=== PATIENT | female | born 1975 | race Caucasian/White ===

== ENCOUNTER 2021-04-25 13:24 | Emergency (ER) | payer OTHER, SELFPAY ==
[2021-04-25 13:29] VITALS: BP 155/97; PULSE 96; RESP 16; TEMP 36.8; O2SAT 98
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
[2021-04-25] MEDS: Ibuprofen 600 MG TAB PO (14:17)
--- NOTE | 2021-04-25 14:19 | NUR.NOTE ---
Nursing Note: Pt [id number] as ordered, c/o bilateral ear pain /, states has hx of same. Covid & UA obtained & sent to lab.
[2021-04-25 14:25] LABS: Bilirubin Negative (Negative); Blood Trace-intact (Negative); Clarity Clear (Clear); Glucose Negative (Negative); Ketones Negative (Negative); Leukocyte Esterase Negative (Negative); Nitrite Negative (Negative); Specific Gravity >= 1.030 (1.005-1.025); Urobilinogen 0.2 EU/dL (Up TO 0.2); pH 6.5 (5-8)
--- NOTE | 2021-04-25 14:30 | NUR.NOTE ---
Nursing Note: Referral given to Care Management for ear pain, headache, establish care with PCP within 1 to 2 weeks. COVID swab done. Patricia Davis
[2021-04-25 14:31] LABS: Bacteria Few HPF (Negative); C & S Indicated? No/Sq. Contamination; Casts Negative LPF (Negative); Crystals Negative HPF (Negative); Epithelial Cells Moderate HPF (Negative); Mucus Trace (Negative); RBC 0-2 HPF (0-2); WBC Negative HPF (0-5)
[2021-04-25 15:10] VITALS: BP 149/96; PULSE 90; RESP 16; TEMP 36.6; O2SAT 96
[2021-04-26 02:10] LABS: COVID-19 RT-PCR UVMMC Result Negative (Negative)
--- NOTE | 2021-04-26 11:02 | NUR.NOTE ---
pt informed via phone that covid result is negative.Nursing Note:
== END 2021-04-25 15:10 | disposition home or self-care (01) ==
PROVIDERS: Emergency Provider Physician Assistant
DX: H92.03 Otalgia, bilateral (principal); B35.1 Tinea unguium; R11.0 Nausea; Z20.822 Contact with and (suspected) exposure to COVID-19
CPT/HCPCS: 99283; U0003; U0005; 81003; 81015

== ENCOUNTER 2021-05-02 21:10 | Emergency (ER) | payer OTHER, SELFPAY ==
--- NOTE | 2021-05-02 21:12 | ED.GENADUL_ITS ---
Discharge Plan Disposition Patient Disposition: HOME Condition: Stable Discharge Details Clinical Impression: Otitis media of right ear Primary Care Provider: None,None ED Provider: Swapna Fuller Home Meds and New Rx's Prescriptions: New fluticasone propionate [Flonase Allergy Relief] 50 mcg/actuation spray,suspension 1 spray SHEILA DAILY Qty: 15.8 RF: 0 amoxicillin-pot clavulanate [Augmentin] 875-125 mg tablet 1 tab PO BID 10 Days Qty: 20 RF: 0 Continued ondansetron 4 mg tablet,disintegrating 4 mg PO TID PRN (Reason: nausea and vomiting) Qty: 6 RF: 0 Discharge Instructions Instructions: Ear Infection (ED) Additional Instructions: Drink plenty of fluids and get plenty of rest. Stop taking your amoxicillin prescription. A prescription for augmentin and nasal spray has been sent electronically to your pharmacy. Follow-up with a primary care doctor in 1 week. Return to the emergency department with any worsening or new concerning symptoms. Discharge Data Discharge Physician: Swapna Fuller Medical Decision Making 45-year-old female seen here last week for bilateral ear pain and nausea, given a prescription for amoxicillin for possible developing ear infection presents with persistent right ear pain which she is concerned will worsen when she finishes her antibiotics. Temp 100 today. Temp 97.9 here. Patient appears comfortable and nontoxic. I evaluated patient last week and her TMs appear normal bilaterally. Her right TM does now appear dull and minimally erythematous. She is finished her amoxicillin prescription tomorrow. Will stop this and start Augmentin. She was given a dose here, a bottle of Advil and a prescription sent electronically to your pharmacy. I discussed with patient that her symptoms may recover more quickly with a regimen of steroids but she is declining due to side effects. She would like a prescription for nasal steroid and was given a prescription for flonase. Her Covid test last week was negative. She denies any other new symptoms other than her right ear pain. Do not see indication for repeating a Covid test and patient agreeable. She is placed on care management list to establish care with a PCP last week. Advised to follow-up with her PCP for reevaluation. Usual and customary return precautions given prior to discharge. Medical Records Medical records reviewed: Yes I reviewed the patient's medical records. HPI General Mode of arrival: ambulatory . Date/Time Provider Initiated Documentation: 05/02/21 21:11 . Limitations to Documentation: no limitations . Information obtained by: patient . HPI Narrative: Pt is a 45yo F with a history of frequent ear infections and bipolar disorder presents for concern for persistent right-sided ear infection after seen here last week and diagnosed with possible otitis media and started on antibiotics. She states she is finished her amoxicillin tomorrow but is concerned that her ear infection is going to worsen when she finishes them tomorrow. She admits to intermittent fevers, temp today 100. She has been taking Tylenol and ibuprofen for her body aches and fever. Related Data Home Medications Medication Instructions Recorded Confirmed ondansetron 4 mg PO TID PRN #6 tab 04/25/21 amoxicillin-pot clavulanate 1 tab PO BID 10 Days #20 tab 05/02/21 [Augmentin] fluticasone propionate [Flonase 1 spray SHEILA DAILY #15.8 ml 05/02/21 Allergy Relief] Previous Rx's Medication Instructions Recorded ondansetron 4 mg PO TID PRN #6 tab 04/25/21 amoxicillin-pot clavulanate 1 tab PO BID 10 Days #20 tab 05/02/21 [Augmentin] fluticasone propionate [Flonase 1 spray SHEILA DAILY #15.8 ml 05/02/21 Allergy Relief] Allergies Allergy/AdvReac Type Severity Reaction Status Date / Time No Known Allergies Allergy Unverified 04/25/21 13:33 General HAYES: 3 Review of Systems All systems reviewed & are unremarkable except as noted in HPI and below Constitutional Constitutional: Reports as per HPI, Reports body ache(s), Denies chills and Reports fever(s) Eyes Eyes: Denies blurry vision ENT Ears, Nose, Mouth, and Throat: Denies dizziness, Reports otalgia, Denies sore throat and Denies throat swelling Cardiovascular Cardiovascular: Denies chest pain and Denies dyspnea Respiratory Respiratory: Denies cough and Denies dyspnea Gastrointestinal Gastrointestinal: Denies abdominal pain, Denies diarrhea and Denies vomiting Genitourinary Genitourinary: Denies hematuria and Denies dysuria Musculoskeletal Musculoskeletal: Denies back pain and Denies numbness Integumentary/Breasts Skin/Breast: Denies lesions and Denies rash Neurologic Neurologic: Denies dizziness, Denies localized weakness and Denies numbness Allergic/Immunologic Allergic/Immunologic: Denies throat swelling PFSH Active Problem List (Updated 05/02/21 @ 22:14 by Swapna Fuller DO) Ear pain, left (Acute) Ear pain, right (Acute) Fungal infection of toenail (Acute) Nausea (Acute) Otitis media of right ear (Acute) Medical History (Updated 05/02/21 @ 22:14 by Swapna Fuller DO) Bipolar affective disorder Surgical History (Updated 04/25/21 @ 14:44 by Swapna Fuller DO) H/O section History of tonsillectomy Social History Smoking/Tobacco Use Status: Never Smoking risk assessment performed?: Yes Alcohol Intake: never Substance use type: does not use Do you feel safe at home: Yes Do you feel safe in your relationship?: Yes Exam Const General: cooperative, healthy appearing and no acute distress HENMT Head: normal to inspection Ears: hearing grossly normal bilaterally, external ears normal and TM abnormal dull on the right Face and sinus: normal facial exam Mouth: oral mucosae normal Throat: posterior oropharynx normal Eyes General: appearance normal, both eyes and all related structures EOM: EOM intact bilaterally Neck Neck: normal visual inspection and No submandibular swelling Lymphatic: no lymphadenopathy noted Chest Chest: normal inspection of the chest and no tenderness Resp Effort & Inspection: normal respiratory effort and able to speak in complete sentences Auscultation: clear to auscultation bilaterally Cardio Rate: regular rate Rhythm: regular rhythm Skin General skin exam: no rashes or lesions noted Neuro General: patient alert, patient awake and patient oriented x3 Cognition: normal cognition Speech: speech normal Motor: muscle tone normal throughout Sensory Exam: no sensory deficits noted Extrem General: normal to inspection, full ROM, capillary refill normal, no calf tenderness bilaterally and no edema Psych Appearance: grossly normal Mental Status: mental status grossly normal Speech and Movement: speech and movement normal Affect: normal affect
[2021-05-02 21:21] VITALS: BP 140/91; PULSE 82; RESP 18; TEMP 36.6; O2SAT 97
[2021-05-02] MEDS: Amoxicillin 875/Clav. 125 TAB PO (22:26)
[2021-05-02] MEDS: Amox. 875/Clav. 125, 2 TABS/BTL 1 TAB PO (22:26)
== END 2021-05-02 22:32 | disposition home or self-care (01) ==
PROVIDERS: Emergency Provider Physician Assistant
DX: H66.91 Otitis media, unspecified, right ear (principal)
CPT/HCPCS: 99283

== ENCOUNTER 2021-05-14 02:41 | Emergency (ER) | payer OTHER, SELFPAY ==
[2021-05-14 02:49] VITALS: BP 124/89; PULSE 107; RESP 20; TEMP 37; O2SAT 97
--- NOTE | 2021-05-14 03:04 | W.ED.GENAD ---
Discharge Plan Disposition Patient Disposition: HOME Condition: Good Discharge Details Clinical Impression: Encounter for medical assessment, Skin irritation Primary Care Provider: None,None ED Provider: Seth Erickson Home Meds and New Rx's Prescriptions: New salicylic acid 2 % cleanser 1 applic topical DAILY Qty: 118 RF: 0 hydroxyzine HCl 25 mg tablet 25 mg PO BID PRNQty: 20 RF: 0 No Action fluticasone propionate [Flonase Allergy Relief] 50 mcg/actuation spray,suspension 1 spray SHEILA DAILY Qty: 15.8 RF: 0 Discharge Instructions Instructions: Acute Rash (ED) Additional Instructions: At this time the rash that you have may benefit from a topical salicylic acid wash. Please apply this as needed. Be mindful that this may cause some skin irritation, if you notice any worsening of your rash please stop the wash. Please take the hydroxyzine as needed for itching. These prescriptions have been sent to your [facility] pharmacy on file. We will help establish a primary care provider for you. We will start this process. If you notice any worsening of your symptoms, or any new symptoms such as vomiting, diarrhea, fever, chills, shortness of breath, chest pain, numbness, weakness, or fainting , please return immediately to the emergency department for reevaluation. Please follow up with your primary care provider as soon as possible for reassessment and reevaluation. As always, it was a pleasure participating in your medical care today. Medical Decision Making This is a 45-year-old female who denies any past medical history who presents today for medical evaluation. Patient states that he just moved up from [place] few months ago, and they injected things in me there. And now it is starting to come out to my skin a little white threads. She states that she has been feeling on and off ill with mild malaise for the last few weeks, she admits to intermittent subjective fevers at home, but does not have a thermometer. She denies any chest pain, cough, or shortness of breath. She was treated for an ear infection twice, 2 to 3 weeks ago. She denies any headache or neck pain. She does admit to mild itchiness on her skin. She states that there have been multiple places on her arms where at seven-point threads of stuff have been coming out, she points to scars in these areas. She denies any other complaints at this time. She has not seen a family doctor or establish care.. She has not had her Covid vaccine. She denies any other complaints. She denies any other medication uses. She states that the soap she uses is blacks organic soap. No other complaints at this time. Physical exam is fairly unremarkable. The patient does have a few comedones On her face, as well as a few areas where it is clear that there was some picking done. No evidence of cellulitis or other significant abnormality. Patient makes it unequivocally clear to me that the diagnosis of zits or comedons is incorrect. The area where there are a few scars on her arms, she also notably states that those are not scars. I am uncertain otherwise as to what they could be. Patient's lungs are clear, vital signs are relatively unremarkable aside for minimal tachycardia. She is afebrile. As far as the patient's generalized malaise, I see no source of infectious etiology. I did offer Covid testing, but she has made it clear that she is not interested in that at this time. We will establish PCP care for the patient. We will recommend a salicylate-based wash, and we will prescribe hydroxyzine for itching as needed. No other indication at this time to suggest a concerning skin infection, cellulitis, abscess, fungal infection or other abnormality. Discussed red flags for which to return. I have extensively reviewed the treatment plan and discharge instructions with the patient. I have addressed all patient concerns at this time. The patient was made aware of what symptoms to monitor for that would warrant a return to the emergency department. Discussed the plan with the patient, they demonstrate verbal understanding and agreement with our assessment and plan at this time. The documentation in this chart was dictated using [employer] dictation software. Please excuse any dictation errors. HPI General Date/Time Provider Initiated Documentation: 05/14/21 02:42. HPI Narrative: This is a 45-year-old female who denies any past medical history who presents today for medical evaluation. Patient states that he just moved up from [place] few months ago, and they injected things in me there. And now it is starting to come out to my skin a little white threads. She states that she has been feeling on and off ill with mild malaise for the last few weeks, she admits to intermittent subjective fevers at home, but does not have a thermometer. She denies any chest pain, cough, or shortness of breath. She was treated for an ear infection twice, 2 to 3 weeks ago. She denies any headache or neck pain. She does admit to mild itchiness on her skin. She states that there have been multiple places on her arms where at seven-point threads of stuff have been coming out, she points to scars in these areas. She denies any other complaints at this time. She has not seen a family doctor or establish care.. She has not had her Covid vaccine. She denies any other complaints. She denies any other medication uses. She states that the soap she uses is blacks organic soap. No other complaints at this time. Related Data Home Medications Medication Instructions Recorded Confirmed fluticasone propionate [Flonase 1 spray SHEILA DAILY #15.8 ml 05/02/21 05/14/21 Allergy Relief] hydroxyzine HCl 25 mg PO BID PRN #20 tab 05/14/21 salicylic acid 1 applic TOPICAL DAILY #118 ml 05/14/21 Previous Rx's Medication Instructions Recorded fluticasone propionate [Flonase 1 spray SHEILA DAILY #15.8 ml 05/02/21 Allergy Relief] hydroxyzine HCl 25 mg PO BID PRN #20 tab 05/14/21 salicylic acid 1 applic TOPICAL DAILY #118 ml 05/14/21 Allergies Allergy/AdvReac Type Severity Reaction Status Date / Time No Known Allergies Allergy Unverified 05/14/21 03:07 General HAYES: 5 Review of Systems All systems reviewed & are unremarkable except as noted in HPI and below PFSH All Active Problems Ear pain, left (Acute) Ear pain, right (Acute) Fungal infection of toenail (Acute) Nausea (Acute) Otitis media of right ear (Acute) Encounter for medical assessment (Acute) Skin irritation (Acute) Medical History Bipolar affective disorder Surgical History H/O section History of tonsillectomy Social History (Reviewed 05/14/21 @ 03:23 by PETEY Murray Smoking/Tobacco Use Status: Former Tobacco Use Smoking risk assessment performed?: Yes Alcohol Intake: never Drug use: Never Substance use type: does not use Do you feel safe at home: Yes Do you feel safe in your relationship?: Yes Additional Social history: Lives at [place] in. States she is waiting for her disability to start Exam Narrative Exam Narrative: 1.Const: Well-nourished, Well-developed, appearing stated age 2.Eyes: PERRL, no conjunctival injection, and symmetrical lids. 3.ENT: Atraumatic external nose and ears. Moist MM. Neck: Symmetric, trachea midline, No thyromegaly. No evidence of otitis media or otitis externa on exam. Tympanic membranes are harden and pearly. 4.CVS: +S1/S2, No murmurs or gallops. Peripheral pulses 2+ and equal in all extremities. Brisk capillary refill in all extremities. 5.RESP: Unlabored respiratory effort. Clear to auscultation bilaterally. No wheezes rales or rhonchi 6.GI: Soft, Nontender/Nondistended, No hepatosplenomegaly. No guarding or rebound. 7.MSK: Normocephalic/Atraumatic, Extremities w/o deformity or ttp No cyanosis or clubbing, Normal movement of all extremities 8.Skin: Warm, Dry. There are a few superficial scratch cristian areas on the patient's face which appear to be secondary to picking. There are few small comedones that are present. No evidence of cellulitis. On the patient's arm she does demonstrate some old scars, which she states are not scars. But otherwise she does not show any signs of rash. No other active lesions, or signs of skin abnormality. 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 Sensation grossly intact, no focal neurologic deficits. 10.Psych: (AAO) x3. Somewhat anxious appearing
--- NOTE | 2021-05-14 03:06 | NUR.NOTE ---
Referral to Care Management to establish pcp sooner rather than later.Nursing Note:
== END 2021-05-14 03:27 | disposition home or self-care (01) ==
PROVIDERS: Emergency Provider Student in an Organized Health Care Education/Training Program
DX: L98.8 Other specified disorders of the skin and subcutaneous tissue (principal)
CPT/HCPCS: 99283